=== PATIENT | male | born 1990 ===

== ENCOUNTER 2016-08-09 20:56 | Emergency (ER) | payer SELFPAY ==
[2016-08-09 21:02] VITALS: BMI 27.8
[2016-08-09 21:08] VITALS: PULSE 64; TEMP 98.1
--- NOTE | 2016-08-09 21:38 | ED PDOC ---
Arrival/HPI - General Chief Complaint: Lower Extremity Problem/Injury Time Seen by Provider: 08/09/16 21:23 Historian: Patient - History of Present Illness Narrative History of Present Illness (Text): 08/09/16 21:38 This 26 yo male presents to this ED c/o left lateral ankle pain x 9 days. Patient stated during a basketball game, he jumped, twisted ankle. Denies knee pain, denies, foot pain, denies hip pain, denies back pain. Time/Duration: Other (9 days) Quality: Aching Context: School Past Medical History - Provider Review Nursing Documentation Reviewed: Yes - Infectious Disease Hx of Infectious Diseases: None - Psychiatric Hx Substance Use: No - Anesthesia Hx Anesthesia: No Family/Social History - Physician Review Nursing Documentation Reviewed: Yes Family/Social History: No Known Family HX Smoking Status: Former Smoker Hx Alcohol Use: Yes Frequency of alcohol use: Socially Hx Substance Use: No Allergies/Home Meds Allergies/Adverse Reactions: Allergies seafood Allergy (Uncoded 08/09/16 21:02) ITCHING Review of Systems - Review of Systems Constitutional: Normal. absent: Fatigue, Weight Change, Fevers Eyes: Normal ENT: Normal Respiratory: Normal Cardiovascular: Normal Gastrointestinal: Normal Genitourinary Male: Normal Musculoskeletal: Other ((+) left lateral ankle pain) Skin: Normal Neurological: Normal Endocrine: Normal Hemo/Lymphatic: Normal Psychiatric: Normal Physical Exam Vital Signs Temp Pulse Resp BP Pulse Ox 08/09/16 23:45 64 16 129/66 99 08/09/16 21:04 98.1 F 64 18 123/76 97 Temperature: Afebrile Blood Pressure: Normal Pulse: Regular Respiratory Rate: Normal Appearance: Positive for: Well-Appearing, Non-Toxic, Comfortable Pain Distress: None Mental Status: Positive for: Alert and Oriented X 3 - Systems Exam Head: Present: Atraumatic, Normocephalic, Other (no raccoon sign. No funk sign) Pupils: Present: PERRL, Other (no hyphema) Extroacular Muscles: Present: EOMI Conjunctiva: Present: Normal Mouth: Present: Moist Mucous Membranes Neck: Present: Normal Range of Motion Respiratory/Chest: Present: Clear to Auscultation, Good Air Exchange. No: Respiratory Distress, Accessory Muscle Use Cardiovascular: Present: Regular Rate and Rhythm, Normal S1, S2. No: Murmurs Abdomen: Present: Normal Bowel Sounds. No: Tenderness, Distention, Peritoneal Signs Back: Present: Normal Inspection. No: CVA Tenderness, Midline Tenderness Upper Extremity: Present: Normal Inspection, Normal ROM, NORMAL PULSES, Neurovascularly Intact, Capillary Refill < 2s. No: Cyanosis, Edema Lower Extremity: Present: Normal Inspection, NORMAL PULSES, Normal ROM, Tenderness (Mild tenderness left lateral malleoulus), Swelling (mild swelling.) , Neurovascularly Intact, Capillary Refill < 2 s, Other (No tenderness over left proximal fibular area. Knee has FROM). No: Edema, Roby's Sign, Erythema , Temperature Abnormalties Neurological: Present: GCS=15, CN II-XII Intact, Speech Normal, Motor Func Grossly Intact, Normal Sensory Function, Normal Cerebellar Funct, Gait Normal, Memory Normal Skin: Present: Warm, Dry, Normal Color. No: Rashes Psychiatric: Present: Alert, Oriented x 3, Normal Insight, Normal Concentration Medical Decision Making ED Course and Treatment: 08/09/16 22:46 Re-evaluation. Patient feels better. Discussed results and plan with patient who expresses understanding. All questions answered and there is agreement with the plan to discharge home with instructions. Patient stable for discharge. Return if symptoms persist or worsen Re-evaluation Time: 22:46 Reassessment Condition: Re-examined, Improved - RAD Interpretation Radiology Orders: 08/09/16 21:37 ANKLE LEFT 3 VIEWS ROUTINE [RAD] Stat Disposition/Present on Arrival - Present on Arrival Any Indicators Present on Arrival: No History of DVT/PE: No History of Uncontrolled Diabetes: No Urinary Catheter: No History of Decub. Ulcer: No History Surgical Site Infection Following: None - Disposition Have Diagnosis and Disposition been Completed?: Yes Diagnosis: Ankle pain Disposition: HOME/ ROUTINE Disposition Time: 22:47 Patient Plan: Discharge Condition: GOOD Discharge Instructions (ExitCare): Arthralgia (ED) Additional Instructions: Call private doctor for follow up visit in 1-2 days. Take medication as instructed. Call Warehouse Administrator if pain persist or worsen in 3-5 days. Use crutches , keep ankle elevated, lion, rest for at least 5 days. Remove lion bandage at bedtime. Return to emergency if symptoms worsen. Prescriptions: Naproxen 500 mg PO BID PRN #14 tab PRN Reason: Pain, Severe (8-10) Famotidine [Pepcid] 40 mg PO DAILY #10 tablet Referrals: PCP,NO [Primary Care Provider] - Follow up with primary Podiatry Clinic [Outside] - Follow up with primary Forms: WORK NOTE
[2016-08-09 23:47] VITALS: BP 129/66; RESP 16; O2SAT 99
--- NOTE | 2016-08-10 08:37 | RAD ---
HISTORY: left ankle pain s/p trauma COMPARISON: No prior FINDINGS: BONES: Normal. No fracture. JOINTS: Normal. No osteoarthritis. SOFT TISSUE: Normal. OTHER FINDINGS: None . IMPRESSION: Normal Bone Xray.
== END 2016-08-09 23:45 | disposition home or self-care (01) ==
LOC: ED 20:56
DX: M25.572 Pain in left ankle and joints of left foot (principal)